=== PATIENT | male | born 1975 | race Two or more races ===

== ENCOUNTER 2022-01-09 19:52 | Emergency (ER) | payer SELFPAY ==
[~2022-01-09] VITALS: Ht 170.2 cm; Wt 77.1 kg
[2022-01-09 22:19] VITALS: BP 121/78
--- NOTE | 2022-01-09 23:25 | RAD ---
Exam: Left ribs with PA chest INDICATION: Pain with, twisting TECHNIQUE: Frontal view of the chest with frontal and oblique views of the left ribs Comparisons: None FINDINGS: The cardiomediastinal silhouette and pulmonary vessels are within normal limits. The lung and pleural spaces are clear. No displaced rib fractures. IMPRESSION: 1. No acute cardiopulmonary process. 2. No displaced rib fractures Electronically signed by: Светлана Rojas MD (01/09/2022 11:23 PM) ERICA
[2022-01-09] MEDS ORDERED: CYCL10TA19 PO (23:35)
[2022-01-09] MEDS ORDERED: IBUP-1007 PO (23:35)
--- NOTE | 2022-01-09 23:36 | PHYS DOC ---
Past Medical History Past Surgical History: Other Additional Past Surgical Histo: Uknown Smoking Status: Current Every Day Smoker Alcohol Use: Occasionally General Adult EDM: Chief Complaint: RIB PAIN HPI: HPI: Patient is a 46 year old male who presents with was cutting down some tree limbs and was doing a lot of lifting and twisting. He states and then he when he twisted he felt a pop sound in his left upper ribs. He states it only hurts with movement mostly. He denies shortness of breath, nausea, vomiting, abdominal pain, headache, dizziness, numbness and tingling, chest pain. He states is a 10 out of 10 but he states that he could feel a bulge and if he pushes it back in that he goes on a 5 out of 10. Review of Systems: Review of Systems: Constitutional: Denies fever or chills. [] Eyes: Denies change in visual acuity. [] HENT: Denies nasal congestion or sore throat. [] Respiratory: Denies cough or shortness of breath. [] Cardiovascular: Denies chest pain or edema. [] GI: Denies abdominal pain, nausea, vomiting, bloody stools or diarrhea. [] : Denies dysuria. [] Musculoskeletal: Denies back pain or joint pain. + Left ribs pain Integument: Denies rash. Neurologic: Denies headache, focal weakness or sensory changes. [] Endocrine: Denies polyuria or polydipsia. [] Lymphatic: Denies swollen glands. [] Psychiatric: Denies depression or anxiety. [] Heart Score: C/O Chest Pain: No Physical Exam: PE: Constitutional: Well developed, well nourished, no acute distress, non-toxic appearance. [] HENT: Normocephalic, atraumatic, bilateral external ears normal, oropharynx moist, no oral exudates, nose normal. [] Eyes: PERRLA, EOMI, conjunctiva normal, no discharge. [] Neck: Normal range of motion, no tenderness, supple, no stridor. [] Cardiovascular:Heart rate regular rhythm, no murmur [] Lungs & Thorax: Bilateral breath sounds clear to auscultation. Left upper rib tenderness with palpation [] Abdomen: Bowel sounds normal, soft, no tenderness, no masses, no pulsatile masses. [] Skin: Warm, dry, no erythema, no rash. [] Back: No tenderness, no CVA tenderness. [] Extremities: No tenderness, no cyanosis, no clubbing, ROM intact, no edema. [] Neurologic: Alert and oriented X 3, normal motor function, normal sensory function, no focal deficits noted. [] Psychologic: Affect normal, judgement normal, mood normal. [] Current Patient Data: Vital Signs: Vital Signs Date Time Temp Pulse Resp B/P (MAP) Pulse Ox O2 Delivery O2 Flow Rate FiO2 01/09/22 22:19 99.1 100 18 121/78 (92) 96 99.1 EKG: EKG: [] Radiology/Procedures: Radiology/Procedures: [] Impression: [facility] [address] [place], [place] [id number] IMAGING REPORT Signed PATIENT: ADELITA LINDQUIST LACCOUNT: [id number] : 1975 LOCATION: ER AGE: 46 SEX: M EXAM STATUS: REG ER ORD. PHYSICIAN: SAMINA REBOLLEDO APRN REASON: pain with twisting PROCEDURE: RIBS LEFT AND PA CHEST Exam: Left ribs with PA chest INDICATION: Pain with, twisting TECHNIQUE: Frontal view of the chest with frontal and oblique views of the left ribs Comparisons: None FINDINGS: The cardiomediastinal silhouette and pulmonary vessels are within normal limits. The lung and pleural spaces are clear. No displaced rib fractures. IMPRESSION: 1. No acute cardiopulmonary process. 2. No displaced rib fractures Electronically signed by: Светлана Melissa MD (01/09/2022 11:23 PM) [facility] DICTATED and SIGNED BY: СВЕТЛАНА MELISSA MD DATE: 01/09/222321 Course & Med Decision Making: Course & Med Decision Making Pertinent Labs and Imaging studies reviewed. (See chart for details) See HPI. Ambulatory with a steady gait. Speaks in full clear sentences. Lungs are clear to auscultation all lobes. He does have left upper rib tenderness with palpation. No deformity, subcutaneous crepitus, bruising, mass felt with palpation. Alert and oriented x4. [place]bek-speaking copy holder is used. Patient will be given incentive spirometer and muscle relaxer with some pain medicine. [] Nathan Disclaimer: Nathan Disclaimer: This electronic medical record was generated, in whole or in part, using a voice recognition dictation system. Departure Departure Impression: Primary Impression: Rib pain on left side Disposition: HOME / SELF CARE / HOMELESS Condition: STABLE Referrals: NO PCP (PCP) Patient Instructions: Incentive Spirometer, Rib Contusion Additional Instructions: Follow-up with a primary care provider this coming week. Use heat or ice to the area. Rest the next 3 to 4 days. Take medication as prescribed and with food. Remember some pain medications will make you sleepy so do not drive or use heavy machinery while on these medications. Use incentive spirometer as educated. Scripts Ibuprofen (IBUPROFEN) 600 Mg Tablet 600 MG PO PRN Q6HRS PRN for INFLAMMATION, #30 TAB Prov: SAMINA REBOLLEDO APRN 01/09/22 Cyclobenzaprine Hcl (CYCLOBENZAPRINE HCL) 10 Mg Tablet 1 TAB PO TID for 5 Days, #15 TAB Prov: SAIMNA REBOLLEDO APRN 01/09/22 SAMINA REBOLLEDO APRN January 09, 2022 23:36
[2022-01-10] MEDS ORDERED: CYCLOBENZAPRINE 10 MG TABLET. PO ONE (00:30)
[2022-01-10] MEDS ORDERED: HYDROcodone/APAP 5/325MG 1 TAB TABLET PO ONE (00:30)
== END 2022-01-10 00:19 | disposition home or self-care (01) ==
LOC: ER 19:52
DX: R07.81 Pleurodynia (principal); F17.200 Nicotine dependence, unspecified, uncomplicated
CPT/HCPCS: 71101; 99283